=== PATIENT | female | born 1970 | race Caucasian/White ===

== ENCOUNTER → 2023-10-09 06:30 | Day surgery (SDC) | payer BC, SELFPAY | LOC: GI 06:30 | PROVIDERS: ATTENDING PHYSICIAN Internal Medicine | DX: Z12.11 Encounter for screening for malignant neoplasm of colon (principal) | CPT/HCPCS: G0121 ==

== ENCOUNTER 2023-10-22 14:25 | Emergency (ER) | payer BC, SELFPAY ==
[2023-10-22 14:27] VITALS: BP 149/95
--- NOTE | 2023-10-22 17:25 | ED.SKININJ ---
HPI-Injury
General
Chief Complaint: Skin Problem
Source: patient
Exam Limitations: none
Time Seen by Provider: 10/22/23 16:16
Nursing documentation reviewed up to this point in time: agreed with
History of Present Illness-Injury
Is this injury a work related problem?: No
Is pt an associate of [facility]/[place]?: No
Initial Injury comments:
Patient states a mert broke and cut her finger. Sustained laceration to right palmar thumb. Injury occurred just [employer]
Past History
Past History
ED Past Medical History: None
Review of Systems
Review of Systems
Allergies reviewed?: Yes
All Other Systems: ROS reviewed and negative except as documented in HPI and ROS
Constitutional: Reports no symptoms
Musculoskeletal: Reports no symptoms
Skin: Reports other (laceration to right palmar thumb)
Neurological: Reports no symptoms
Psychiatric: Reports no symptoms
Skin Exam
Laceration
Right Palmar Thumb:
Length in cm: 2
Any active bleeding?: low grade venous oozing
Distal skin color and temperature: normal-warm & good color
Normal distal neurovascular exam: Yes
Range of motion: full
Phy Exam
General Physical Exam
General Presentation: well appearing and no apparent distress
General age: appears stated age
General Skin: warm and dry
General Habitus: normal
General Mental: alert
General Hydration: appears well hydrated
Musculoskeletal Exam
Musculoskeletal Exam: full ROM and neuro vasc intact
Skin Exam
Skin Exam: normal color, warm/dry and no rash
Psychiatric Exam
Psychiatric Exam: normal mood/affect
Course
Orders/Labs/Results
Orders:
Orders
10/22/23 14:34
CR Hand - Right Min 3 Views Urgent
Comment:
Reason For Exam: foreign body
Vital Signs
Initial and Last Documented VS:
Initial Vital Signs
Temp Pulse Resp BP Pulse Ox
98.3 F 88 18 149/95 98
10/22/23 14:27 10/22/23 14:27 10/22/23 14:27 10/22/23 14:27 10/22/23 14:27
Last Documented Vital Signs
Temp Pulse Resp BP Pulse Ox
98.3 F 88 18 149/95 98
10/22/23 14:27 10/22/23 14:27 10/22/23 14:27 10/22/23 14:27 10/22/23 14:27
Procedures
Laceration Closure
Right Palmar Thumb:
Status of Wound: clean
Description of Wound Edges: sharp
Preparation: cleaned with saline
Anesthesia: 1% Lidocaine
Revision/Debridement: routine- no revision and irrigate-direct pressure
Wound exploration: explored to base- no FB and no tendon involvement
Type of Closure: single layer closure
Skin Closure Material: 5-0 prolene
*Radiology
Radiology exam reviewed: radiology read reviewed
*Pulse Oximetry
Patient hypoxic: no
*Critical Care Note
Total Time (30-74mins, 75-104mins- exclusive of procedures): Not Applicable
ED Attending Note
-
Portions of this chart may have been created with voice recognition software.� Occasional wrong word or��sound alike� substitutions may have occurred due to the inherent limitations of voice recognition software.
Discharge Plan
Departure
Referrals:
UNKNOWN - PT DOES,NOT KNOW [Family Provider] -
Interventions
Interventions:
*Risk Screen - Suicide Last Done: 10/22/23 14:27
*General Assessment Last Done: 10/22/23 14:27
*Neglect/Abuse Screening Last Done: 10/22/23 14:27
ED-Skin Assessment Last Done: 10/22/23 17:00
Discharge Date and Time
Print Language: [id number]
[2023-10-22] MEDS: ADACEL 0.5 ML IM (17:34)
== END 2023-10-22 17:48 | disposition home or self-care (01) ==
LOC: EMR 14:25
PROVIDERS: EMERGENCY PHYSICIAN Emergency Medicine
DX: S61.011A Laceration without foreign body of right thumb without damage to nail, initial encounter (principal); W26.9XXA Contact with unspecified sharp object(s), initial encounter; Z23 Encounter for immunization
CPT/HCPCS: 99283; 90471; 12001; 73130; 90715

== ENCOUNTER → 2024-06-25 16:30 | Outpatient (REF) | payer BC, SELFPAY | LOC: WDC 16:30 | DX: Z12.31 Encounter for screening mammogram for malignant neoplasm of breast (principal) | CPT/HCPCS: 77063; 77067 ==

== ENCOUNTER → 2024-11-14 13:48 | Outpatient (REF) | payer BC, SELFPAY | LOC: WDC 13:48 | DX: R92.2 Inconclusive mammogram (principal) | CPT/HCPCS: 76641 ==